=== PATIENT | female | born 1995 | race Caucasian/White ===

== ENCOUNTER 2021-03-14 08:31 | Outpatient (RCR) | payer OTHER, SELFPAY ==
[2021-03-14 09:12] VITALS: BP 110/57; PULSE 115
== END 2021-05-02 09:39 | disposition home or self-care (01) ==
LOC: ANHOBOP 08:31
PROVIDERS: PCP Family Medicine; Visit Provider Obstetrics & Gynecology
DX: O24.419 Gestational diabetes mellitus in pregnancy, unspecified control (principal); Z3A.38 38 weeks gestation of pregnancy
CPT/HCPCS: 59025

== ENCOUNTER 2021-03-21 05:04 | Inpatient (IN) | payer OTHER, SELFPAY ==
[2021-03-14 08:52] VITALS: BP 110/57; PULSE 78
[2021-03-21] VITALS (99 sets, daily range): BP systolic 82–170; BP diastolic 35–154; PULSE 61–168; RESP 16; TEMP 36.2–37.2; O2SAT 87–100; BMI 30.3
--- NOTE | 2021-03-21 05:04 | LDADM ---
This patient, Brian Baker, was admitted to Labor/Delivery/Recovery 103 on 03/21/21 at 05:04. Plans for labor, pain management and were discussed with patient. Patient/family oriented to hospital policies and general routines including ID bracelet, bed and alarms, visiting hours, pain management, procedures, bathroom and other care routines, personal items, smoking policy, room service/diet and guest tray routines, infant security routines, and visiting hours. Patient/Family are encouraged to report perceived risks to care and to ask questions if they do not understand what they are told or what they should do. See OBIX for further documentation.
--- OUTSIDE RECORDS SUMMARY | 2021-03-21 05:10 | XMS_ITS | Encounter Summary ---
:1995 Author Care Team Providers Name Role Phone Shubhamjazmín Sierra MD Primary Care Provider [phone] Reason for Visit None recorded. Assessment and Plan 1. Gestational diabetes mellitus , class A>1< ? US, obstetric, biophysical profile + non-stress test Discussion Note: None recorded.Patient educational handouts: No information available. Plan of Care Reminders Provider Appointments Ob Routine Melvina Devries CNM 03/25/2021 4:30PM Lab None recorded. ? ? Referral None recorded. ? ? Procedures None recorded. ? ? Surgeries None recorded. ? ? Imaging US, Obstetric, [facility] Biophysical Profile + 03/18/2021 Non-stress Test Medications Name Start Date ? ? OneTouch Delica Plus Lancet 33 gauge ? USE TO TEST 4 TIMES DAILY (AM FASTING AND 1 HRAFTER E ACH MEAL) OneTouch Ultra Test strips ? USE TO TEST 4 TIMES DAILY (FASTING IN THE AM, AND 1 H OUR AFTER EATING MEALS) OneTouch Ultra2 Meter ? USE TO TEST ? Medications Administered None recorded. Vitals None recorded. Results Lab Results None recorded. Allergies Code Code System Name Reaction Severity Onset
--- OUTSIDE RECORDS SUMMARY | 2021-03-21 05:10 | XMS_ITS | Encounter Summary ---
:1995 Author Care Team Providers Name Role Phone Shubhamjazmín Sierra MD Primary Care Provider [phone] Reason for Visit OB visit [id number] Assessment and Plan 1. Routine care Discussion Note: None recorded.Patient educational handouts: No information available. Plan of Care Reminders Provider Appointments Ob Routine Melvina DevriesMARTÍN 03/25/2021 4:30PM Lab None ? ? recorded. Referral None ? ? recorded. Procedures None ? ? recorded. Surgeries None ? ? recorded. Imaging None ? ? recorded. Medications Name Start Date ? ? OneTouch Delica Plus Lancet 33 gauge ? USE TO TEST 4 TIMES DAILY (AM FASTING AND 1 HRAFTER E ACH MEAL) OneTouch Ultra Test strips ? USE TO TEST 4 TIMES DAILY (FASTING IN THE AM, AND 1 H OUR AFTER EATING MEALS) OneTouch Ultra2 Meter ? USE TO TEST ? Medications Administered None recorded. Vitals Height Weight BMI Blood Pressure 5 ft 5 in 160 lbs 26.6 kg/m2 113/73 mm[Hg] Results Lab Results None recorded. Allergies Code Code System Name Reaction Severity Onset NKDA ? ?
--- OUTSIDE RECORDS SUMMARY | 2021-03-21 05:10 | XMS_ITS | Encounter Summary ---
:1995 Author Care Team Providers Name Role Phone Shubhamjazmín Sierra MD Primary Care Provider [phone] Reason for Visit OB visit Assessment and Plan 1. Routine care Discussion [...] BMI Blood Pressure 5 ft 5 in 157 lbs 26.1 kg/m2 111/68 mm[Hg] Results Lab Results None recorded. Allergies Code Code System Name Reaction Severity Onset NKDA ? ? ? Problems
--- OUTSIDE RECORDS SUMMARY | 2021-03-21 05:10 | XMS_ITS | Encounter Summary ---
:1995 Author Care Team Providers Name Role Phone Shubhamjazmín Sierra MD Primary Care Provider [phone] Reason for Visit None recorded. Assessment and Plan 1. Gestational diabetes mellitus , class A>1< ? non-stress test Discussion Note: None recorded.Patient educational handouts: No information available. Plan of Care Reminders Provider Appointments Ob Routine Melvina Devries CNM 03/25/2021 4:30PM Lab None ? ? recorded. Referral None ? ? recorded. Procedures None ? ? recorded. Surgeries None ? ? recorded. Imaging Non-stress [place] Test 02/25/2021 Medications Name Start Date ? ? OneTouch [...] Reaction Severity Onset NKDA ? ? ? Probl
--- OUTSIDE RECORDS SUMMARY | 2021-03-21 05:10 | XMS_ITS | Encounter Summary ---
:1995 Author Care Team Providers Name Role Phone Shubhamjazmín Sierra MD Primary Care Provider [phone] Reason for Visit None recorded. Assessment and [...] None recorded. ? ? Imaging US, Obstetric, [facility] Biophysical Profile + 03/04/2021 Non-stress Test Medications Name Start Date ? [...]
--- OUTSIDE RECORDS SUMMARY | 2021-03-21 05:10 | XMS_ITS | Encounter Summary ---
:1995 Author Care Team Providers Name Role Phone Shubhamjazmín Sierra MD Primary Care Provider [phone] Reason for Visit None recorded. Assessment and [...] ? recorded. Imaging Non-stress [place] Test 03/07/2021 Medications Name Start Date ? ? OneTouch [...]
--- OUTSIDE RECORDS SUMMARY | 2021-03-21 05:10 | XMS_ITS | Encounter Summary ---
:1995 Author Care Team Providers Name Role Phone Shubhamjazmín Sierra MD Primary Care Provider [phone] Reason for Visit None recorded. Assessment and [...] ? recorded. Imaging Non-stress [place] Test 03/04/2021 Medications Name Start Date ? ? OneTouch [...]
--- OUTSIDE RECORDS SUMMARY | 2021-03-21 05:10 | XMS_ITS ---
:1995 Author Care Team Providers Name Role Phone FRANKDante SHAFER MD Primary Care Provider [phone] Allergies Code Code System Name Reaction Severity Status Onset NKDA ? Medications Name Status Start Date Stop Date ? ? Damaris 0.35 mg tablet Completed 12/27/2018 08/23/2020 take 1 tablet by oral route every day escitalopram 10 mg tablet Active ? Not av ailable TAKE 1 TABLET BY MOUTH EVERY DAY OneTouch Delica Plus Lancet 33 Active ? N ot available gauge OneTouch Ultra Test strips Active ? Not a vailable OneTouch Ultra2 Meter Active ? Not availa ble USE TO TEST Active ? Not available Sprintec (28) 0.25 mg-35 mcg tablet Active ? Not available TAKE 1 TABLET BY MOUTH EVERY DAY Problems Name Status Onset Date Source ? Family Planning Surveillance Unknown 11/17/2012 His tory Anxiety State Unknown 02/16/2013 History Adult Health Examination Unknown 12/15/2013 History Specialized Medical Examination Unknown 12/18/2014 History Screening for Malignant Neoplasm of Unknown 12/26/[address] Concept Unknown 12/26/[address] Concept Unknown 03/16/2018 History Gestation Period, 10 Weeks Unknown 05/05/2018 Histo ry Detection Examination Unknown 05/05/2018 History Rubella Screening Status Unknown 05/26/2018 History Screening Unknown 05/26/2018 History Screening for Malformation Unknown 07/21/2018
--- OUTSIDE RECORDS SUMMARY | 2021-03-21 05:10 | XMS_ITS | Encounter Summary ---
:1995 Author Care Team Providers Name Role Phone Shubhamjazmín Sierra MD Primary Care Provider [phone] Reason for Visit None recorded. Assessment and Plan 1. Gestational diabetes mellitus , class A>1< ? US, obstetric, follow-up ? US, obstetric, biophysical profile + non-stress test Discussion Note: None recorded.Patient educational handouts: No information available. Plan of Care Reminders Provider Appointments Ob Routine Melvina Devries CNM 03/25/2021 4:30PM Lab None recorded. ? ? Referral None recorded. ? ? Procedures None recorded. ? ? Surgeries None recorded. ? ? Imaging US, Obstetric, [facility] Follow-up 02/25/2021 ? US, Obstetric, [facility] Biophysical Profile + 02/25/2021 Non-stress Test Medications Name Start Date ? [...]
--- OUTSIDE RECORDS SUMMARY | 2021-03-21 05:10 | XMS_ITS | Encounter Summary ---
:1995 Author Care Team Providers Name Role Phone Shubhamjazmín Sierra MD Primary Care Provider [phone] Reason for Visit NST [id number] EDC 03/22/2021 Assessment and Plan 1. Gestational diabetes mellitus , class A>1< ? non-stress test Discussion Note: None recorded.Patient educational handouts: No information available. Plan of Care Reminders Provider Appointments Ob Routine Melvina Devries CNM 03/25/2021 4:30PM Lab None ? ? recorded. Referral None ? ? recorded. Procedures None ? ? recorded. Surgeries None ? ? recorded. Imaging Non-stress [place] Test 03/18/2021 Medications Name Start Date ? ? OneTouch [...] Allergies Code Code System Name Reaction Severity On
--- OUTSIDE RECORDS SUMMARY | 2021-03-21 05:10 | XMS_ITS | Encounter Summary ---
:1995 Author Care Team Providers Name Role Phone Shubhamjazmín Sierra MD Primary Care Provider [phone] Reason for Visit None recorded. Assessment and [...] ? recorded. Imaging Non-stress [place] Test 03/11/2021 Medications Name Start Date ? ? OneTouch [...]
--- OUTSIDE RECORDS SUMMARY | 2021-03-21 05:10 | XMS_ITS | Encounter Summary ---
:1995 Author Care Team Providers Name Role Phone Shubhamjazmín Sierra MD Primary Care Provider [phone] Reason for Visit OB visit 38w3d Assessment and Plan 1. Routine care Discussion [...] BMI Blood Pressure 5 ft 5 in 159 lbs 26.5 kg/m2 109/73 mm[Hg] Results Lab Results None recorded. Allergies Code Code System Name Reaction Severity Onset NKDA ? ?
--- OUTSIDE RECORDS SUMMARY | 2021-03-21 05:10 | XMS_ITS | Encounter Summary ---
:1995 Author Care Team Providers Name Role Phone Shubhamjazmín Sierra MD Primary Care Provider [phone] Reason for Visit None recorded. Assessment and [...] ? recorded. Imaging Non-stress [place] Test 02/28/2021 Medications Name Start Date ? ? OneTouch [...]
--- OUTSIDE RECORDS SUMMARY | 2021-03-21 05:10 | XMS_ITS | Encounter Summary ---
:1995 Author Care Team Providers Name Role Phone Shubhamjazmín Sierra MD Primary Care Provider [phone] Reason for Visit OB visit 37w3d Assessment and Plan 1. Routine care Discussion [...] ft 5 in 160 lbs 26.6 kg/m2 111/73 mm[Hg] Results Lab Results None recorded. Allergies Code Code System Name Reaction Severity Onset NKDA ? ?
--- OUTSIDE RECORDS SUMMARY | 2021-03-21 05:10 | XMS_ITS | Encounter Summary ---
:1995 Author Care Team Providers Name Role Phone Shubhamjazmín Sierra MD Primary Care Provider [phone] Reason for Visit None recorded. Assessment and [...] None recorded. ? ? Imaging US, Obstetric, [facility] Biophysical Profile + 03/11/2021 Non-stress Test Medications Name Start Date ? [...]
--- OUTSIDE RECORDS SUMMARY | 2021-03-21 05:11 | XMS_ITS | Encounter Summary ---
:1995 Author Care Team Providers Name Role Phone Shubhamjazmín Sierra MD Primary Care Provider [phone] Reason for Visit None recorded. Assessment and Plan 1. Gestational diabetes mellitus , class A>1< Pt here for diet teaching. Stacia t over ideal ranges for FBS and pp BS. Went over carb counting and carb ranges for e ach meal/snack. Gave ideas for foods to eat for meals/snacks. Discussed drink option s and to avoid soda and juice. Pt is not a big fan of meat and eats a lot of pasta for dinner. Tried to give ideas for dinners so she doesn't eat just carbs. Went over importance of checking nutrition labels and following serving sizes to stay inside c arb ranges. Told pt she can go online to ADA for meal options or to look up low carb meal recipes online for ideas as well. Pt has been checking her BS for almost 2 weeks to see if she rules in for GDM. In the last week most of her pp sugars are elevated. Only 2 fasting levels are elevated. Told pt to continue checking BS QID and adjustin g diet to follow low carb diet to try to keep BS within normal range. Pt aware if suga rs aren't controlled by diet we would discuss starting insulin. Went over NST schedule with pt and importance of keeping these appts and checking BS for her and baby's health. Pts questions were answered and pt verbalized understanding. MARIA EUGENIA cruz Discussion Note: None recorded.Patient educational handouts: No information available. Plan of Care Reminders Provider Appointments Ob Routine Melvina Devries CNM 03/25/2021 4:30PM Lab None ? ? recorded. Referral None ? ? recorded.
--- OUTSIDE RECORDS SUMMARY | 2021-03-21 05:11 | XMS_ITS | Encounter Summary ---
:1995 Author Care Team Providers Name Role Phone Shubhamjazmín Sierra MD Primary Care Provider [phone] Reason for Visit OB visit Assessment and Plan Assessment Note Patient is ___weeks . Discu ssed plan. 1. Routine care Discussion Note: None recorded.Patient [...] ft 5 in 160 lbs 26.6 kg/m2 104/67 mm[Hg] Results Lab Results None recorded. Allergies Code Code System Name Reaction Severity Onset
--- OUTSIDE RECORDS SUMMARY | 2021-03-21 05:11 | XMS_ITS | Encounter Summary ---
:1995 Author Care Team Providers Name Role Phone Shubhamjazmín Sierra MD Primary Care Provider [phone] Reason for Visit None recorded. Assessment and [...] ? recorded. Imaging Non-stress [place] Test 02/14/2021 Medications Name Start Date ? ? OneTouch [...]
--- OUTSIDE RECORDS SUMMARY | 2021-03-21 05:11 | XMS_ITS | Encounter Summary ---
:1995 Author Care Team Providers Name Role Phone Shubhamjazmín Sierra MD Primary Care Provider [phone] Reason for Visit OB visit OB [id number] EDC 03/22/2021 LMP 06/15/2020 Assessment and Plan Assessment Note Patient is _32__weeks . Dis cussed plan. 1. Routine care Discussion Note: None [...] ft 5 in 160 lbs 26.6 kg/m2 106/70 mm[Hg] Results Lab Results None recorded. Allergies
--- OUTSIDE RECORDS SUMMARY | 2021-03-21 05:11 | XMS_ITS | Encounter Summary ---
:1995 Author Care Team Providers Name Role Phone Shubhamjazmín Sierra MD Primary Care Provider [phone] Reason for Visit None recorded. Assessment and Plan 1. Gestational diabetes mellitus , class A>1< ? US, obstetric, biophysical profile Discussion Note: None recorded.Patient educational handouts: No information available. Plan of Care Reminders Provider Appointments Ob Routine Melvina Devries CNM 03/25/2021 4:30PM Lab None recorded. ? ? Referral None recorded. ? ? Procedures None recorded. ? ? Surgeries None recorded. ? ? Imaging US, Obstetric, [facility] Biophysical Profile 02/20/2021 Medications Name Start Date ? ? OneTouch [...] Code Code System Name Reaction Severity Onset NKD
--- OUTSIDE RECORDS SUMMARY | 2021-03-21 05:11 | XMS_ITS | Encounter Summary ---
:1995 Author Care Team Providers Name Role Phone Shubhamjazmín Sierra MD Primary Care Provider [phone] Reason for Visit None recorded. Assessment and Plan 1. Gestational diabetes mellitus , class A>1< ? US, obstetric, follow-up ? US, obstetric, biophysical profile + non-stress test ? US, doppler, umbilic al artery velocimetry Discussion Note: None recorded.Patient educational handouts: No information available. Plan of Care Reminders Provider Appointments Ob Routine Melvina Devries CNM 03/25/2021 4:30PM Lab None recorded. ? ? Referral None recorded. ? ? Procedures None recorded. ? ? Surgeries None recorded. ? ? Imaging US, Obstetric, [facility] Follow-up 01/30/2021 ? US, Obstetric, [facility] Biophysical Profile + 01/30/2021 Non-stress Test ? US, DopplerTaty Umbilical Artery 01/30/2021 Velocimetry Medications Name Start Date ? ? OneTouch Delica Plus Lancet 33 gauge ? USE TO TEST 4 TIMES DAILY (AM FASTING AND 1 HRAFTER E ACH MEAL) OneTouch Ultra Test strips ? USE TO TEST 4
--- OUTSIDE RECORDS SUMMARY | 2021-03-21 05:11 | XMS_ITS | Encounter Summary ---
:1995 Author Care Team Providers Name Role Phone Shubhamjazmín Sierra MD Primary Care Provider [phone] Reason for Visit OB visit OB [id number] EDC03/22/2021 LMP 06/15/2019 Assessment and Plan Assessment Note Patient is _35__weeks . Dis cussed plan. 1. Routine care [...] ft 5 in 160 lbs 26.6 kg/m2 114/73 mm[Hg] Results Lab Results None recorded. Allergies
--- OUTSIDE RECORDS SUMMARY | 2021-03-21 05:11 | XMS_ITS | Encounter Summary ---
:1995 Author Care Team Providers Name Role Phone Shubhamjazmín Sierra MD Primary Care Provider [phone] Reason for Visit None recorded. Assessment and [...] None recorded. ? ? Imaging US, Obstetric, [facility] Biophysical Profile + 01/24/2021 Non-stress Test Medications Name Start Date ? [...]
--- OUTSIDE RECORDS SUMMARY | 2021-03-21 05:11 | XMS_ITS | Encounter Summary ---
:1995 Author Care Team Providers Name Role Phone Shubhamjazmín Sierra MD Primary Care Provider [phone] Reason for Visit None recorded. Assessment and [...] ? recorded. Imaging Non-stress [place] Test 02/20/2021 Medications Name Start Date ? ? [...]
--- OUTSIDE RECORDS SUMMARY | 2021-03-21 05:11 | XMS_ITS | Encounter Summary ---
:1995 Author Care Team Providers Name Role Phone Shubhamjazmín Sierra MD Primary Care Provider [phone] Reason for Visit None recorded. Assessment and [...] None recorded. ? ? Imaging US, Obstetric, [facility] Biophysical Profile + 02/14/2021 Non-stress Test Medications Name Start Date ? [...]
--- OUTSIDE RECORDS SUMMARY | 2021-03-21 05:11 | XMS_ITS | Encounter Summary ---
:1995 Author Care Team Providers Name Role Phone Shubhamjazmín Sierra MD Primary Care Provider [phone] Reason for Visit OB visit 34w6d Assessment and Plan 1. Routine care Discussion Note: None recorded.Patient educational handouts: No information available. Plan of Care Reminders Provider Appointments Ob Routine Melvina jane BlancotequilaMARTÍN 03/25/2021 4:30PM Lab None ? ? recorded. [...] ft 5 in 157 lbs 26.1 kg/m2 116/73 mm[Hg] Results Lab Results None recorded. Allergies Code Code System Name Reaction Severity Onset NKDA ? ?
--- OUTSIDE RECORDS SUMMARY | 2021-03-21 05:11 | XMS_ITS | Encounter Summary ---
:1995 Author Care Team Providers Name Role Phone Shubhamjazmín Sierra MD Primary Care Provider [phone] Reason for Visit OB visit Assessment and [...] ft 5 in 160 lbs 26.6 kg/m2 116/62 mm[Hg] Results Lab Results None recorded. Allergies Code Code System Name Reaction Severity Onset
--- OUTSIDE RECORDS SUMMARY | 2021-03-21 05:11 | XMS_ITS | Encounter Summary ---
:1995 Author Care Team Providers Name Role Phone Shubhamjazmín Sierra MD Primary Care Provider [phone] Reason for Visit None recorded. Assessment and [...] ? recorded. Imaging Non-stress [place] Test 02/07/2021 Medications Name Start Date ? ? OneTouch [...]
--- OUTSIDE RECORDS SUMMARY | 2021-03-21 05:11 | XMS_ITS | Encounter Summary ---
:1995 Author Care Team Providers Name Role Phone Shubhamjazmín Sierra MD Primary Care Provider [phone] Reason for Visit None recorded. Assessment and [...] ? recorded. Imaging Non-stress [place] Test 02/18/2021 Medications Name Start Date ? ? OneTouch Delica Plus Lancet 33 gauge ? USE TO TEST 4 TIMES DAILY (AM FASTING AND 1 HRAFTER E ACH MEAL) OneTouch Ultra Test strips ? USE TO TEST 4 TIMES DAILY (FASTING IN THE AM, AND 1 H OUR AFTER EATING MEALS) OneTouch Ultra2 Meter ? USE TO TEST ? Medications Administered None recorded. Vitals Blood Pressure 110/72 mm[Hg] Results Lab Results None recorded. Allergies Code Code System Name Reaction Severity Onset
--- OUTSIDE RECORDS SUMMARY | 2021-03-21 05:11 | XMS_ITS | Encounter Summary ---
:1995 Author Care Team Providers Name Role Phone Shubhamjazmín Sierra MD Primary Care Provider [phone] Reason for Visit None recorded. Assessment and [...] ? recorded. Imaging Non-stress [place] Test 01/24/2021 Medications Name Start Date ? ? OneTouch [...] Medications Administered None recorded. Vitals Blood Pressure 115/67 mm[Hg] Results Lab Results None recorded. Allergies Code Code System Name Reaction Severity Onset
--- OUTSIDE RECORDS SUMMARY | 2021-03-21 05:11 | XMS_ITS | Encounter Summary ---
:1995 Author Care Team Providers Name Role Phone Shubhamjazmín Sierra MD Primary Care Provider [phone] Reason for Visit None recorded. Assessment and [...] ? recorded. Imaging Non-stress [place] Test 01/30/2021 Medications Name Start Date ? ? OneTouch [...]
--- OUTSIDE RECORDS SUMMARY | 2021-03-21 05:11 | XMS_ITS | Encounter Summary ---
:1995 Author Care Team Providers Name Role Phone Shubhamjazmín Sierra MD Primary Care Provider [phone] Reason for Visit None recorded. Assessment and [...] None recorded. ? ? Imaging US, Obstetric, [facility] Biophysical Profile + 02/07/2021 Non-stress Test Medications Name Start Date ? [...]
--- OUTSIDE RECORDS SUMMARY | 2021-03-21 05:11 | XMS_ITS | Encounter Summary ---
:1995 Author Care Team Providers Name Role Phone Shubhamjazmín Sierra MD Primary Care Provider [phone] Reason for Visit OB visit Pt. states thinks she may had some BHs, unsure Assessment and Plan Assessment Note Patient is [...] ft 5 in 159 lbs 26.5 kg/m2 129/80 mm[Hg] Results Lab Results None recorded. Allergies
--- OUTSIDE RECORDS SUMMARY | 2021-03-21 05:12 | XMS_ITS | Encounter Summary ---
:1995 Author Care Team Providers Name Role Phone Shubhamjazmín Sierra MD Primary Care Provider [phone] Reason for Visit None recorded. Assessment and Plan 1. Small for gestational age fet us ? US, obstetric, follow-up Discussion Note: None recorded.Patient educational handouts: No information available. Plan of Care Reminders Provider Appointments Ob Routine Melvina Devries CNM 03/25/2021 4:30PM Lab None ? ? recorded. Referral None ? ? recorded. Procedures None ? ? recorded. Surgeries None ? ? recorded. Imaging , [place] Obstetric, Follow-up 01/03/2021 Medications Name Start Date ? ? OneTouch [...]
[2021-03-21 05:58] LABS: Glucose Point of Care 74 mg/dl (65-105)
[2021-03-21 05:59] LABS: Basophils Percent Auto 0.3 % (0.2-1.2); Eosinophils Absolute Auto 0.2 K/mm3 (0-0.3); Eosinophils Percent Auto 1.8 % (0-4.4); Hematocrit 33.5 % (37.0-47.0); Hemoglobin 11.2 g/dL (12.0-15.0); Immature Granulocyte Absolute 0.05 K/mm3 (0.00-0.031); Immature Granulocyte Percent A 0.5 % (0-0.5); Lymphocytes Absolute Auto 2.54 K/mm3 (0.9-3.2); Lymphocytes Percent Auto 27.2 % (18.3-44.2); Mean Corpuscular HGB Conc 33.4 g/dl (32-36); Mean Corpuscular Hemoglobin 30.2 pg (26-34); Mean Corpuscular Volume 90.3 fl (80-100); Mean Platelet Volume 10.4 fl (7.4-10.4); Monocytes Absolute Auto 0.7 K/mm3 (0.1-0.6); Monocytes Percent Auto 7.2 % (2.6-8.5); Neutrophils Absolute Auto 5.9 K/mm3 (1.3-6.7); Platelet Count Result 238 k/mm3 (150-375); Red Blood Count 3.71 M/mm3 (4.2-5.4); Red Cell Distribution Width 13.6 % (11.5-14.5); White Blood Count 9.3 K/mm3 (4.5-10.0)
[2021-03-21] MEDS: OXYTOCIN 30 UNITS/NS 500 ML 30 UNITS/500 ML BAG IV CONT (06:03)
[2021-03-21] MEDS: LACTATED RINGERS 1,000 ML 125 ML IV CONT ×3 (06:03→11:09)
[2021-03-21 07:23] LABS: Rapid Plasma Reagin Non-Reactive (NonReactive)
[2021-03-21] MEDS: fentaNYL CITRATE INJ (*CRX) 100 MCG/2 ML VIAL 50 MCG IV PUSH (08:04)
--- NOTE | 2021-03-21 08:14 | WPDOBADMIT ---
Obstetrics - Admit Note Admission Note: 26 y/o @ 39weeks here for induction of labor. GDM diet controlled. VSS FHR category 1 Regular contractions Cervix /-2 Arom moderate amount of clear odorless fluid Epidural when desired Anticipate record reviewed. No pertinent additions to the history and/or any subsequent changes in the physical findings that are not consistent with the expected course of the were found. Additions to the history and/or subsequent changes in the physical findings follow. None.
--- NOTE | 2021-03-21 10:11 | WPDANESEPPF ---
Anes - Initial Pre Proc Eval Procedure: labor epidural Date/Time: 03/21/21 10:11 Surgeon: Manuel Santacruz MD Pre Op Diagnosis: labor pain Pre Op Diagnosis: IOL Patient Data Age: 26 Gender: F Height: 1.52 m Weight: 70.5 kg Last Vital Signs Temp 36.8 C 03/21/21 09:00 Pulse 73 03/21/21 10:09 BP 112/62 03/21/21 10:09 Pulse Ox 94 03/21/21 10:08 Allergies Allergy/AdvReac Type Severity Reaction Status Date / Time No Known Allergies Allergy Verified 03/09/21 13:38 Home Medications Medication Instructions Recorded Confirmed Type prenat.vits,fernando,pts-fwlt-ktxkp 1 tablet PO DAILY 03/09/21 03/09/21 History [ #2] Laboratory Tests 03/21/21 03/21/21 03/21/21 05:52 05:52 05:52 WBC 9.3 K/mm3 K/mm3 (4.5-10.0) RBC 3.71 M/mm3 L M/mm3 (4.2-5.4) Hgb 11.2 g/dL L g/dL (12.0-15.0) Hct 33.5 % L % (37.0-47.0) MCV 90.3 fl fl (80-100) MCH 30.2 pg pg (26-34) MCHC 33.4 g/dl g/dl (32-36) RDW 13.6 % % (11.5-14.5) Plt Count 238 k/mm3 k/mm3 (150-375) MPV 10.4 fl fl (7.4-10.4) Immature Gran % (Auto) 0.5 % % (0-0.5) Neut % (Auto) 63.0 % % (45.5-73.1) Lymph % (Auto) 27.2 % % (18.3-44.2) [place] % (Auto) 7.2 % % (2.6-8.5) Eos % (Auto) 1.8 % % (0-4.4) Baso % (Auto) 0.3 % % (0.2-1.2) Lymph # (Auto) 2.54 K/mm3 K/mm3 (0.9-3.2) [place] # (Auto) 0.7 K/mm3 H K/mm3 (0.1-0.6) Eos # (Auto) 0.2 K/mm3 K/mm3 (0-0.3) Baso # (Auto) 0.0 K/mm3 K/mm3 (0.0-0.1) Abs Immat Gran (auto) 0.05 K/mm3 H K/mm3 (0.00-0.031) Absolute Neuts (auto) 5.9 K/mm3 K/mm3 (1.3-6.7) Absolute Nucleated RBC 0.0 K/mm3 K/mm3 (0.0-0.012) Nucleated RBC % 0.0 % % (0.0-0.2) POC Capillary Glucose RPR Non-reactive (NonReactive) Blood Type O Positive Antibody Screen Negative 03/21/21 05:56 WBC RBC Hgb Hct MCV MCH MCHC RDW Plt Count MPV Immature Gran % (Auto) Neut % (Auto) Lymph % (Auto) [place] % (Auto) Eos % (Auto) Baso % (Auto) Lymph # (Auto) [place] # (Auto) Eos # (Auto) Baso # (Auto) Abs Immat Gran (auto) Absolute Neuts (auto) Absolute Nucleated RBC Nucleated RBC % POC Capillary Glucose 74 mg/dl mg/dl (65-105) RPR Blood Type Antibody Screen Patient hx anesthesia problems: none Family hx anesthesia problems: none Results Review: All pre-operative results and documents have been reviewed as part of the pre-operative evaluation. [facility] Past Medical History Medical History (Updated 03/21/21 @ 10:11 by Elias Dasilva DO) Anxiety GDM (gestational diabetes mellitus) Family History Family History Grandparent Hypertension Family history of chronic obstructive pulmonary disease Diabetes mellitus Breast cancer in female Multiple sclerosis Social History Social History Smoking status: Never smoker Alcohol intake: never Substance use: never Spiritual care concerns: No Anes - Eval Final PreProcedure Day of Procedure 03/21/21 10:11 Patient weight: obese ASA classification: III Anesthesia type and monitoring: regional epidural and standard monitoring Results Review: All pre-operative results and documents have been reviewed as part of the pre-operative evaluation. Informed Consent: The patient's anesthetic plan and its attendant risks and benefits were discussed with the patient/family/POA. Questions were solicited and answers provided to the satisfaction of the patient/family/POA.
[2021-03-21 10:16] LABS: Glucose Point of Care 80 mg/dl (65-105)
--- NOTE | 2021-03-21 12:24 | PM.OBPRVD ---
OB - Delivery Note Procedure Delivery date: 03/21/21 events: Gestational Diabetes Intrapartal events: None Induction method: per pitocin protocol Delivery monitor: external FHT and external uterine Route of delivery: Episiotomy description: None Laceration Description: None Quantitative Blood Loss (ml): 42 Anesthesia type: Epidural [place] Baby Date of : 03/21/21 Time of : 12:12 Weeks of gestation at delivery: 39 presentation: vertex position: Right Occiput Anterior Placenta delivery description: Spontaneous cord vessel description: Delayed Cord Clamping Narrative: Mother and baby in stable condition. Cord gasses collected and handed off to staff.
[2021-03-21] MEDS: OXYTOCIN 30 UNITS/NS 500 ML 30 UNITS/500 ML BAG 125 UNITS IV CONT (12:55)
[2021-03-21] MEDS: IBUPROFEN 600 MG TABLET PO (14:57)
--- NOTE | 2021-03-21 16:30 | OBPPTRN ---
Patient transferred to post room #284 via wheelchair. Support person present. Oriented to unit, room, information board, rooming in, admission packet and security measures. Patient verbalizes understanding.
[2021-03-22 05:00] VITALS: BP 106/80; PULSE 76; RESP 16; TEMP 36.8; O2SAT 100
[2021-03-22] MEDS: IBUPROFEN 600 MG TABLET PO ×2 (05:13→14:44)
[2021-03-22 05:27] LABS: Hematocrit 30.1 % (37.0-47.0); Hemoglobin 9.7 g/dL (12.0-15.0)
[2021-03-22 05:57] LABS: Glucose 92 mg/dL (65-110)
--- NOTE | 2021-03-22 07:14 | PM.OBPNVD ---
OB - PN: Subj Subjective Date/time seen: 03/22/21 07:14 Patient comments: no complaints baby status: doing well OB - PN: Obj Data Labs CBC & Chem 7: 03/22/21 05:10 03/22/21 05:10 Labs: Laboratory Results - last 24 hr 03/21/21 03/21/21 03/22/21 05:52 10:07 05:10 Hgb 9.7 L Hct 30.1 L Glucose POC Capillary Glucose 80 RPR Non-reactive 03/22/21 05:10 Hgb Hct Glucose 92 POC Capillary Glucose RPR OB - PN A/P Plan day: 1 Plan: routine care Time Spent With Patient Time: Total time spent is greater than 50% in coordination of care (as documented) at patient's floor/unit and/or counseling patient: Review of Systems Review of Systems: All systems reviewed & are unremarkable except as noted in HPI and below Exam Const: General: cooperative, healthy appearing, comfortable and no acute distress
[2021-03-22 08:10] VITALS: BP 98/61; PULSE 65; RESP 16; TEMP 36.6; O2SAT 98
[2021-03-22] MEDS: POLYSACCHARIDE IRON COMPLEX 150 MG CAPSULE PO ×2 (08:38→16:17)
[2021-03-22] MEDS: DOCUSATE SODIUM 100 MG CAPSULE PO ×2 (08:38→16:17)
[2021-03-22] MEDS: MULTIVIT/MIN/PREN/FOL AC/IRON TABLET 1 TAB PO (08:39)
--- NOTE | 2021-03-22 11:10 | PC.NURSE ---
Consult with pt., mother reports is eagerly feeding with slight tenderness Mother pumped and bottle fed with first child. Requested mother call out next feeding for observation per policy. Reviewed infant feeding cues, frequencies, duration of feedings, feeding elimination flow sheet, and signs of adequate intake. Demonstrated stimulation techniques to wake infant for feeding. Reviewed signs of a correct latch, effective nursing and suck swallow ratio. Nipple care reviewed of lanolin after feedings and warm compresses as needed. Requested mother to call out for RN/LC assistance next feeding to assess latch due reported nipple tenderness. Instructed feeding should be initiated three hours from start of last feeding or if feeding cues are noted before. Mother voiced understanding of information shared.
[2021-03-22 12:15] VITALS: BP 113/68; PULSE 80; RESP 16; TEMP 36.5; O2SAT 98
--- NOTE | 2021-03-22 13:10 | PC.NURSE ---
Mother called out for assist with feeding. Infant is able to freely thrust tongue past gum ridge and flange both lips. Both nipples appear to be flat, have red scab lines from possible shallow latch shallow latch Nipple care reviewed of lanolin after feedings, warm compresses as needed, gel pads provided and reviewed care and cleaning. Reviewed feeding cues, frequencies, duration of feedings, feeding elimination flow sheet, and signs of adequate intake. Demonstrated stimulation techniques to wake for feeding. Assisted with infant to breast. Reviewed positioning/alignment in cross cradle, holding breast in ?U? hold and guided asymmetrical latch on. Reviewed rational for each. Mother reports she has been allowing infant to self latch in cradle position. Infant able to latch correctly within a few attempts. Infant nursed eagerly with steady draws and occasional swallowing noted, some pausing noted. Reviewed signs of a correct latch, effective nursing and suck swallow ratio. Suggested mother stimulate while feeding to increase stimulation for milk supply, for increased intake and to assist with maintaining deep latch. would slip to shallow latch causing tenderness. Demonstrated how to adjust latch more deeply while feeding as needed. Mother reports she can feel the difference in latch with less tenderness. Instructed mother to call out for RN assistance every feeding until she is comfortable with latching correctly. Instructed feeding should be initiated three hours from start of last feeding or if feeding cues are noted before. Mother voiced understanding of information shared.
--- NOTE | 2021-03-22 17:01 | PC.NURSE ---
Patient viewed the discharge video Mother & Baby Care, The First Two Weeks . Patient was given the opportunity and encouraged to ask questions. Patient verbalized understanding of information shared and has been given the mother/baby guide for home reference.
[2021-03-22 20:20] VITALS: BP 118/57; PULSE 73; RESP 16; TEMP 36.6; O2SAT 99
[2021-03-23 07:30] VITALS: BP 114/70; PULSE 68; RESP 16; TEMP 36.6; O2SAT 99
[2021-03-23] MEDS: DOCUSATE SODIUM 100 MG CAPSULE PO (07:59)
[2021-03-23] MEDS: POLYSACCHARIDE IRON COMPLEX 150 MG CAPSULE PO (07:59)
[2021-03-23] MEDS: IBUPROFEN 600 MG TABLET PO (08:00)
[2021-03-23] MEDS: MULTIVIT/MIN/PREN/FOL AC/IRON TABLET 1 TAB PO (11:06)
--- NOTE | 2021-03-23 11:33 | P.PNOB_ITS ---
OB - PN: Subj Subjective Date/time seen: 03/23/21 11:33 Patient comments: no complaints baby status: doing well Holiday feeding status: exclusively breast feeding OB - PN: Obj Data Labs CBC & Chem 7: 03/22/21 05:10 03/22/21 05:10 OB - PN A/P Plan day: 2 Plan: routine care and discharge home Time Spent With Patient Time: Total time spent is greater than 50% in coordination of care (as documented) at patient's floor/unit and/or counseling patient: Time with patient: less than 15 minutes Exam Narrative: NAD abdomen soft, nontender, fundus firm below the umbilicus Extremities nontender, 1+ edema
--- NOTE | 2021-03-23 11:35 | PM.OBDSVD ---
DS: Admitting Diagnosis Discharge Date 03/23/21 Admitting Diagnosis term DS: Discharge Diagnosis Discharge Diagnosis (1) , delivered: Code(s): O80 - Encounter for full-term uncomplicated delivery Status: Acute OB - DS: Summary Hospital Course Hospital Course: Brian had an uncomplicated vaginal delivery and course. OB Procedures : Ultrasound OB Procedures Intrapartum: Spontaneous Vag Delivery OB Procedures: : None Peripartum Data Infant Delivery Method: Natural Vaginal complications: none Status at Discharge Functional status at discharge: independent ambulation Time Spent with Patient Time attestation: Total time spent providing and/or coordinating discharge services: Time spent: Less than 30 minutes Exam Narrative: NAD abdomen soft, appropriately tender Ext non tender, 1+ edema DS: Data Data Completed and Pending Pending studies at discharge: Pending at discharge 03/21/21 12:19 Surgical [PTH] Routine Discharge Plan Discharge Attending physician on discharge: Chelle Bettencourt Discharging Clinician: Chelle Bettencourt Anticipated Discharge Date/Time: 03/23/21 11:34 Patient Disposition: Home, Self-Care Activity: pelvic rest Diet: regular Discharge Instructions: Education: Mom and Baby Guide Given to: Mother Follow-Up: Call your delivering provider's office for an appointment to be seen in: 6 Weeks Mom and baby should come to the [facility] for the follow-up appointment. Appointment Date/Time: March 25, 2021 at 9:00 am What to expect at your follow-up visit: Physical Assessment Call [phone] if you are unable to keep your appointment time. BREAST CARE: * Wear a snug supportive bra. * For engorgement discomfort: Breast Feeding: * Apply warm moist washcloths * Express milk as needed to relieve engorgement * Wear loose clothing * For sore nipples: * Identify correct latch-on * Apply warm moist washcloths before and after nursing * Air dry nipples after nursing * May apply Lansinoh cream to nipples EPISIOTOMY/PERINEAL CARE: * Until bleeding stops, use your valrei bottle after urinating * Change your pad frequently throughout the day * No tub baths until seen by your physician - You may shower ACTIVITY: * Rest as much as possible. * Do not exercise or lift anything heavier than your baby (such as laundry or other children.) * Avoid stairs or driving as much as possible. * Do not put anything into the vagina. No douching, tampons, or sexual activity until seen by physician. NOTIFY PHYSICIAN IF YOU HAVE ANY QUESTIONS OR IF ANY OF THE FOLLOWING SYMPTOMS OCCUR: * If your perineum becomes red, swollen, or more painful than what you have experienced in the hospital. * If your vaginal bleeding becomes foul smelling. * If your vaginal bleeding becomes more heavy than a period or if your bleeding changes from pink to bright red. However, you may pass an occasional walnut-sized clot once or twice for the first week . * If you experience a sharp, shooting pain in you calves. * If you discover a hard, reddened area on your breast or if you experience flu-like symptoms. DIET: * Eat regular, well-balanced meals. * Drink plenty of fluids daily. If , drink to thirst. Patient Instructions: Antibiotic Form Stand Alone Forms: General Discharge Information Follow-up/Referrals: Manuel Santacruz MD [Physician] - 4 Weeks Discharge Medications: Continued #2 Tablet 1 tablet PO DAILY RF: 0 Date of admission: 03/21/21 05:04 Primary Care Provider: Shubham Sierra Admitting Provider: Manuel Santacruz Attending physician on admission: Manuel Santacruz Condition: Stable
[2021-03-25 09:11] VITALS: BP 114/68; PULSE 60; RESP 20; TEMP 36.7; O2SAT 100
== END 2021-03-23 12:33 | disposition home or self-care (01) | DRG 807 ==
LOC: ANHOB2 03-23 11:35 → ANHLDR 03-26 08:11 → ANHOB2 03-26 08:11
PROVIDERS: Advanced Practice Midwife; Admitting Provider Obstetrics & Gynecology; PCP Family Medicine; Visit Provider Obstetrics & Gynecology
DX: O24.420 Gestational diabetes mellitus in childbirth, diet controlled (principal); Z37.0 Single live birth; Z3A.39 39 weeks gestation of pregnancy
CPT/HCPCS: 36415; 82947; 82948; 85014; 85018; 85025; 86592; 86850; 86900; 86901; 88307; A9270; J2590; J2795; J3010; J7120